=== PATIENT | female | born 1960 | race Caucasian/White ===

== ENCOUNTER → 2018-07-29 | Outpatient (CLI) | payer BC ==
[2018-07-29 11:14] LABS: Basophils # (A) 0.1 k/uL (0-0.2); Basophils % (A) 1 %; Eosinophils % (A) 1 %; HCT 37.4 % (34.0-46.0); HGB 11.9 gm/dL (11.4-16.0); Hypochromasia Moderate; Lymphocytes # (A) 1.7 k/uL (1.0-4.8); Lymphocytes % (A) 23 %; MCH 27.3 pg (25.0-35.0); MCHC 31.9 g/dL (31.0-37.0); MCV 85.6 fL (80.0-100.0); Mean Platelet Volume 7.3; Monocytes # (A) 0.3 k/uL (0-1.0); Monocytes % (A) 4 %; Neutrophils # (A) 5.4 k/uL (1.3-7.7); Neutrophils % (A) 70 %; Platelet Count 268 k/uL (150-450); RBC 4.37 m/uL (3.80-5.40); RDW 14.7 % (11.5-15.5); WBC 7.6 k/uL (3.8-10.6)
== END | disposition home or self-care (01) ==
LOC: LABPAT 10:00
PROVIDERS: ATTEND Obstetrics & Gynecology
DX: Z01.812 Encounter for preprocedural laboratory examination (principal); Z01.818 Encounter for other preprocedural examination; I10 Essential (primary) hypertension; C56.9 Malignant neoplasm of unspecified ovary
CPT/HCPCS: 85025; 93005

== ENCOUNTER → 2018-07-30 | Outpatient (CLI) | payer BC ==
--- NOTE | 2018-08-04 09:51 | MM ---
Reason for exam: screening (asymptomatic). History: Patient is postmenopausal. Physical Findings: A clinical breast exam by your physician is recommended on an annual basis and results should be correlated with mammographic findings. MG 3D Screening Mammo W/Cad Bilateral CC and MLO view(s) were taken. XCCL view(s) were taken of the left breast. There are scattered fibroglandular densities. Benign appearing bilateral calcifications. No suspicious abnormality. Left intrammary lymph node. ASSESSMENT: Benign, BI-RAD 2 RECOMMENDATION: Routine screening mammogram of both breasts in 1 year.
== END | disposition home or self-care (01) ==
LOC: RADMAMWWP 13:32
PROVIDERS: ATTEND Obstetrics & Gynecology
DX: Z12.31 Encounter for screening mammogram for malignant neoplasm of breast (principal); Z80.3 Family history of malignant neoplasm of breast
CPT/HCPCS: 77063; 77067

== ENCOUNTER 2018-08-05 05:53 | Day surgery (SDC) | payer BC ==
[2018-07-31 09:07] VITALS: BMI 43.0
[~2018-08-05 05:53] MED LIST: DEXAMETHASONE SOD PHOSPHATE 10 MG/ML 1 ML VIAL IV ONE; HYDROmorphone 0.5 MG/0.5 ML SYRINGE IVP PRN; LACTATED RINGERS 1,000 ML IV SCH; LIDOCAINE 1% 20 ML VIAL (10MG/ML) FOR IV START INTRADERMA PRN; ONDANSETRON 4 MG/2 ML VIAL IVP ONE; SCOPOLAMINE 1.5MG/72HR PATCH TRANSDERM ONE; ceFAZolin 3 GM in SODIUM CHLORIDE 0.9% 100 ML IVPB ONE
[2018-08-05] MEDS ORDERED: MIDAZOLAM 2 MG/2 ML VIAL ONE (07:17)
[2018-08-05] MEDS ORDERED: KETOROLAC 30 MG/ML 1 ML VIAL ONE (07:17)
[2018-08-05] MEDS ORDERED: fentaNYL (PF) 50 MCG/ML 2 ML AMP ONE (07:17)
[2018-08-05] MEDS ORDERED: LIDOCAINE 1% INJ 10MG/ML (20 ML MDV) ONE (07:17)
[2018-08-05] MEDS ORDERED: PROPOFOL 10 MG/ML 20 ML VIAL IV ONE (07:17)
[2018-08-05 08:11] VITALS: TEMP 97
--- NOTE | 2018-08-05 08:29 | P.OP ---
Date of Procedure: 08/05/18 Preoperative Diagnosis: Postmenopausal bleeding. Endometrial biopsy revealing FIGO grade 1 endometrial adenocarcinoma in a background of hyperplastic tissue. Postoperative Diagnosis: Grade 3 rectocele. Grade 2 uterine prolapse. Procedure(s) Performed: Fractional dilatation and curettage of the uterine cavity, hysteroscopy. Anesthesia: CARLYLEA Surgeon: Eri Hebert Estimated Blood Loss (ml): 25 IV fluids (ml): 300 Urine output (ml): 150 Pathology: other (Endocervical curettings, endometrial curettings) Condition: stable Disposition: PACU Operative Findings: Abundant intrauterine tissue. No obvious polyps or tumors. Description of Procedure: Patient is brought to the operating suite where a general anesthetic is administered. She's placed in the dorsal lithotomy position. The appropriate timeout is performed to assure proper patient and procedural identification. The cervix, vagina, perineal bodies are all prepped and draped in usual sterile fashion. Bladder is drained for approximately 150 mL of clear yellow urine. Weighted speculum was placed into the vagina. A grade 3 rectocele is noted. The anterior lip of the cervix is grasped with a double-tooth tenaculum. A Kevorkian curette is used and endocervical curettings are obtained. Uterus then sounds to a depth of 10 cm. There is a grade 2 uterine prolapse noted under anesthesia. The cervix is gently and systematically dilated using Hanks dilators. The hysteroscope was introduced and fluid is infused into the cavity. The cavity is distended and inspected. There is an abundant amount of tissue noted, however no obvious tumors polyps or fibroids. The hysteroscope was removed. A medium sharp curette is used and the cavity is thoroughly curetted for a large amount of tissue. Polyp forceps is introduced and no additional tissue is procured. Hysteroscope was once again placed and the cavity appears to be completely curettage. Double-tooth tenaculum is removed from the anterior lip of the cervix. Cervix is clean and dry. All sponge needle and enhancement counts are correct. Total estimated blood loss 25 mL's. Patient is brought back to the recovery room in very good condition with a pulse of 62, blood pressure 128/62. Toradol is given prior to leaving the operative suite. She will follow-up with me in the office in 1 week.
[2018-08-05 09:08] VITALS: RESP 16
[2018-08-05 09:35] VITALS: BP 129/71; PULSE 71
== END 2018-08-05 09:53 | disposition home or self-care (01) ==
LOC: OR 05:53
PROVIDERS: ATTEND Obstetrics & Gynecology
DX: C54.1 Malignant neoplasm of endometrium (principal); N81.2 Incomplete uterovaginal prolapse; I10 Essential (primary) hypertension; E11.9 Type 2 diabetes mellitus without complications; F40.240 Claustrophobia; E66.9 Obesity, unspecified; Z68.41 Body mass index [BMI] 40.0-44.9, adult; Z79.899 Other long term (current) drug therapy; Z97.2 Presence of dental prosthetic device (complete) (partial); Z98.51 Tubal ligation status
CPT/HCPCS: 58558; 88305; J2250; J1100; J2405; J2001; J3010; J1885; J2704

== ENCOUNTER → 2018-08-17 | Outpatient (CLI) | payer BC ==
[2018-08-17 09:52] LABS: Basophils # (A) 0.1 k/uL (0-0.2); Basophils % (A) 1 %; Eosinophils # (A) 0.1 k/uL (0-0.7); Eosinophils % (A) 2 %; HCT 37.9 % (34.0-46.0); HGB 11.7 gm/dL (11.4-16.0); Hypochromasia Slight; Lymphocytes # (A) 2.5 k/uL (1.0-4.8); Lymphocytes % (A) 37 %; MCHC 30.8 g/dL (31.0-37.0); MCV 84.5 fL (80.0-100.0); Mean Platelet Volume 6.8; Monocytes # (A) 0.3 k/uL (0-1.0); Monocytes % (A) 5 %; Neutrophils # (A) 3.6 k/uL (1.3-7.7); Neutrophils % (A) 54 %; Platelet Count 237 k/uL (150-450); RBC 4.48 m/uL (3.80-5.40); RDW 15.1 % (11.5-15.5); WBC 6.7 k/uL (3.8-10.6)
[2018-08-17 10:02] LABS: African American GFR (CKD) >90 (>60 ml/min/1.73 sqM); Anion Gap 9 mmol/L; Blood Urea Nitrogen 14 mg/dL (7-17); Carbon Dioxide 28 mmol/L (22-30); Chloride 104 mmol/L (98-107); Glucose 106 mg/dL (74-99); Potassium 4.1 mmol/L (3.5-5.1); Sodium 141 mmol/L (137-145)
== END | disposition home or self-care (01) ==
LOC: LABPAT 08:38
PROVIDERS: ATTEND Obstetrics & Gynecology
DX: Z01.812 Encounter for preprocedural laboratory examination (principal); C55 Malignant neoplasm of uterus, part unspecified
CPT/HCPCS: 36415; 80051; 82565; 82947; 84520; 85025; 87086

== ENCOUNTER 2018-08-24 06:00 | Day surgery (SDC) | payer BC ==
[2018-08-18 14:07] VITALS: BMI 42.7
[2018-08-24] MEDS ORDERED: LACTATED RINGERS 1,000 ML IV ONE ×2 (06:32→08:33)
[2018-08-24] MEDS ORDERED: BACITRACIN 500 UNIT/GM OINT 28.4 GM TUBE TOPICAL ONE (07:17)
[2018-08-24] MEDS ORDERED: VASOPRESSIN 20 UNIT/ML 1 ML VIAL IM ONE ×2 (07:17)
[2018-08-24] MEDS ORDERED: fentaNYL (PF) 50 MCG/ML 2 ML AMP ONE (07:24)
[2018-08-24] MEDS ORDERED: PROPOFOL 10 MG/ML 20 ML VIAL IV ONE (07:24)
[2018-08-24] MEDS ORDERED: MORPHINE SULFATE (PF) 0.3 MG/0.3 ML SYR ONE (07:24)
[2018-08-24] MEDS ORDERED: MIDAZOLAM 2 MG/2 ML VIAL ONE (07:24)
[2018-08-24] MEDS ORDERED: diphenhydrAMINE 50 MG/ML 1 ML VIAL IVP PRN (08:50)
[2018-08-24] MEDS ORDERED: METOCLOPRAMIDE 5 MG/ML 2 ML VIAL IVP PRN (08:50)
[2018-08-24] MEDS ORDERED: KETOROLAC 30 MG/ML 1 ML VIAL IVP PRN (08:50)
[2018-08-24] MEDS ORDERED: ONDANSETRON 4 MG/2 ML VIAL IVP PRN (08:50)
[2018-08-24] MEDS ORDERED: SIMETHICONE 80 MG CHEWABLE PO PRN (08:50)
[2018-08-24] MEDS ORDERED: IBUPROFEN 600 MG TAB PO PRN (08:50)
--- NOTE | 2018-08-24 08:50 | P.OP ---
Date of Procedure: 08/24/18 Preoperative Diagnosis: FIGO grade 1 adenoCA endometrium in a background of hyperplasia Postoperative Diagnosis: post operative pathology pending Procedure(s) Performed: vaginal hysterectomy Anesthesia: CARLYLEA Surgeon: Eri Hebert Manager [facility]: Paige [place] Estimated Blood Loss (ml): 50 IV fluids (ml): 1,000 Urine output (ml): 200 Pathology: other (cervix and uterus) Condition: stable Disposition: PACU Operative Findings: Grade 3 rectocele. Grade 2-3 cystocele. Ovaries exceptionally high in the surgical field, within normal limits to inspection. Description of Procedure: Patient is brought to the operating suite where spinal with Duramorph is administered. She's placed in the dorsal lithotomy position. The cervix, vagina, perineum and perirectal areas are all prepped and draped in usual sterile fashion. Antibiotics are given. The appropriate timeout was performed. Bladder is drained for approximately 200 mL of clear yellow urine. Multiparous cervix is grasped at 12:00 and brought into the surgical field. The cervix is injected circumferentially with a dilute Pitressin solution. A [place] blade scalpel is used to circumscribe the mucosa with a V positioning at 6:00. Sponge rolled finger is used to sweep the mucosa from the underlying fascial planes. All times the mucosa is swept well from the surgical field to avoid bladder and/or ureteral injury. Peritoneum is entered at 6:00 with a Metzenbaum scissor and tagged with 2-0 Vicryl suture held with a hemostat. The large billed speculum is now placed into the peritoneal cavity. Stiven clamps are used in the uterosacral cardinal ligaments are clamped, tied, and held laterally with a hemostat after the pedicle was cut. This is done bilaterally. Uterine vasculature is skeletonized, clamped cut and suture ligated. 2 additional pedicles are taken superior to the vessels. The bladder is swept well from the operative field. The uterus is "walked out" and the remaining pedicles are securely clamped with Stiven clamps. The cervix and uterus are removed and sent to pathology for evaluation. The pedicles are tied with 0 Vicryl suture, flashed, and retied for excellent hemostasis. A sponge stick is then used to visualize the ovaries which are exceptionally high bilateral sidewalls. The decision is made to leave them in situ secondary to their inaccessibility and normal morphology to inspection. The large billed speculum is then changed to the shallow speculum. The 2-0 Vicryl suture is brought around in a pursestring fashion to close the peritoneum. The uterosacral cardinal ligaments are brought across to incorporate the opposite ligament as well as mucosa. 3 additional [id number]-pl-oclnk sutures are used for final vaginal cuff closure. The vagina is clean and dry. The Jacobo catheter is placed in the urine is clear. Rectal exam reveals smooth mucosa with no evidence of stitch or puckering of the mucosa. The vagina is packed with one-inch iodophor gauze. All sponge needle and enhancement counts are correct at the end of the procedure. Total estimated blood loss 50 mL's. Patient is brought back to the recovery room with stable vital signs including pulse of 71, blood pressure 103/55.
[2018-08-24] MEDS ORDERED: NALOXONE 0.4 MG/ML 1 ML VIAL IV PRN (10:13)
[2018-08-24] MEDS ORDERED: HYDROmorphone 0.5 MG/0.5 ML SYRINGE IVP PRN (10:13)
--- NOTE | 2018-08-25 05:52 | P.PN ---
Progress Note - Text Progress Note Date: 08/25/18 Patient doing well. Ambulating without paresthesia or weakness. Denies headache. Pain controlled. Spinal site clean and dry A/P POD#1 s/p hysterectomy with spinal duramorph - doing well
--- NOTE | 2018-08-25 08:03 | P.DS ---
Providers Date of admission: 08/24/18 Expected date of discharge: 08/25/18 Attending physician: Eri Hebert Primary care physician: Tenisha Ragsdale [facility] Course: This is a 58-year-old white female who presented with a history of postm enopausal bleeding. Endometrial biopsy and D&C both revealed FIGO grade 1 endometrial adenocarcinoma in a background of hyperplasia with atypia. After thorough counseling patient elected to have surgery here with me with the vaginal approach. The risks and benefits have been reviewed in detail. Please see my admitting H&P for details. Yesterday the patient underwent vaginal hysterectomy under my care. The ovaries were exceptionally high in the pelvis, and therefore left in situ secondary to normal appearance and in accessibility vaginally. A grade 3 rectocele was encountered and noted. Surgery was otherwise unremarkable, please see my dictated operative note for details. This morning the patient is doing well. She is voiding, ambulating, passing flatus without difficulty. Vaginal packing is removed. She is tolerating regular diet. She has no complaint of pain. There is no vaginal bleeding. Vital signs are stable and she has remained afebrile. She is judged to be in very good condition for discharge home. Patient will follow-up with me in the office in 2 weeks. She is reminded no intercourse, tampons or douching. She will use [id number] Advil or Aleve as needed for pain. I've asked her to call me with any fevers shakes or chills, foul smelling or copious vaginal drainage, with any difficulties voiding or defecating, with any back pain, lower extremity issues, or indeed with any concerns. No heavy lifting. No car driving for 2 weeks. No vacuuming for 2 weeks.She will follow up with me in the office in 2 weeks at which time the final pathology report will be discussed and further plans delineated as needed. Patient Condition at Discharge: Good Plan - Discharge Summary Discharge Rx Participant: No New Discharge Prescriptions: No Action Losartan-Hctz 50-12.5 mg [Hyzaar 50-12.5] 1 each PO DAILY Discharge Medication List Losartan-Hctz 50-12.5 mg [Hyzaar 50-12.5] 1 each PO DAILY 07/31/18 [History] Follow up Appointment(s)/Referral(s): Eri Hebert MD [STAFF PHYSICIAN] - 2 Weeks Patient Instructions/Handouts: *Surgery [facility] - Scopalamine Patch Instructions Discharge Disposition: HOME SELF-CARE
[2018-08-25 10:40] VITALS: BP 101/58; PULSE 51; RESP 20; TEMP 97.8
== END 2018-08-25 10:53 | disposition home or self-care (01) ==
LOC: OR 06:00 → 6PED 08:44 → OR 08-25 10:53
PROVIDERS: ATTEND Obstetrics & Gynecology
DX: C54.1 Malignant neoplasm of endometrium (principal); C53.9 Malignant neoplasm of cervix uteri, unspecified; I10 Essential (primary) hypertension; Z79.899 Other long term (current) drug therapy
CPT/HCPCS: 94760; 88309; 58260; J2250; J1200; J1100; J0690; J2405; J2274; J3010; J1885; J2704; 86850; 86900; 86901

== ENCOUNTER 2018-08-28 17:55 | Emergency (ER) | payer BC ==
[2018-08-28 18:28] VITALS: TEMP 98.1
[2018-08-28] MEDS ORDERED: ONDANSETRON 4 MG/2 ML VIAL IVP STA (18:51)
[2018-08-28] MEDS ORDERED: SODIUM CHLORIDE 0.9% 1,000 ML IV STA (18:51)
--- NOTE | 2018-08-28 19:02 | ED ---
General Adult HPI - General Chief complaint: Nausea/Vomiting/Diarrhea Stated complaint: Post Op- nausea, dizziness Time Seen by Provider: 08/28/18 18:37 Source: patient Mode of arrival: ambulatory Limitations: no limitations - History of Present Illness Initial comments: Patient is 4-year-old female presents emergency department with nausea vomiting. Patient reports on 08/24 had undergone a vaginal hysterectomy by Dr. Hebert and was discharged the following day without complications. Patient reports she has developed nausea since her discharge that is not resolving. Patient denies vomiting or diarrhea. Patient states she is passing flatus and ready had a bowel movement. Patient reports taking a stool softener prescribed by the surgeon. Patient also reports feeling "foggy"in her head but denies blurry vision or headache. Patient reports the pain is absent at this moment. Patient reports increased urgency or frequency but denies dysuria. Patient reports not drinking enough fluids or eating food but increased urinary output. Patient d enies vaginal discharge, hematuria, melena or hematochezia. Patient denies fever, chest pain, chest tightness, shortness of breath, abdominal pain. Patient denies calf pain or use of exogenous estrogen. - Related Data Home Medications Medication Instructions Recorded Confirmed Losartan-Hctz 50-12.5 mg [Hyzaar 1 each PO DAILY 07/31/18 08/28/18 50-12.5] Ibuprofen [Motrin Ib] 200 mg PO Q6HR 08/28/18 08/28/18 Allergies Allergy/AdvReac Type Severity Reaction Status Date / Time No Known Allergies Allergy Verified 08/28/18 19:21 Review of Systems ROS Statement: Those systems with pertinent positive or pertinent negative responses have been documented in the HPI. ROS Other: All systems not noted in ROS Statement are negative. Past Medical History Past Medical History: Hyperlipidemia, Hypertension History of Any Multi-Drug Resistant Organisms: None Reported Past Surgical History: Hysterectomy, Tubal Ligation Additional Past Surgical History / Comment(s): oophrectomy Past Psychological History: No Psychological Hx Reported Smoking Status: Never smoker Past Alcohol Use History: None Reported Past Drug Use History: None Reported General Exam Limitations: no limitations General appearance: alert, in no apparent distress, obese Head exam: Present: atraumatic, normocephalic Eye exam: Present: normal appearance, PERRL, EOMI Pupils: Present: normal accommodation ENT exam: Present: normal exam, normal oropharynx, mucous membranes moist, TM's normal bilaterally, normal external ear exam Neck exam: Present: normal inspection, full ROM. Absent: lymphadenopathy Respiratory exam: Present: normal lung sounds bilaterally Cardiovascular Exam: Present: regular rate, normal rhythm, normal heart sounds GI/Abdominal exam: Present: soft, normal bowel sounds. Absent: tenderness, guarding, rebound, rigid Extremities exam: Present: normal inspection, full ROM, normal capillary refill, other (+2 dorsalis pedis and posterior tibialis bilaterally. +2 ulnar and radial pulses bilaterally.). Absent: tenderness, pedal edema, calf tenderness (Negative Homans bilaterally) Back exam: Present: normal inspection, full ROM. Absent: tenderness, CVA tenderness (R), CVA tenderness (L) Neurological exam: Present: alert, oriented X3 Psychiatric exam: Present: normal affect, normal mood Skin exam: Present: warm, intact, normal color Course Vital Signs 08/28/18 18:24 Temperature 98.1 F Pulse Rate 88 Respiratory 18 Rate Blood Pressure 158/84 O2 Sat by Pulse 95 Oximetry Medical Decision Making - Medical Decision Making Patient is a 58-year-old female presents emergency Department with nausea. UA is showing mild elevation of her blood cells but I suspect this is residual blood from the procedure. CBC and CMP are unremarkable. KUB showing mild left- sided atelectasis and is otherwise unremarkable. Patient was given fluids, Z ofran and Reglan. On reevaluation patient reports feeling better. I have low suspicion for a PE considering the patient's vitals are stable, no shortness of breath, negative Homans bilaterally, no hemoptysis, exogenous use of estrogen. Patient advised to follow-up with her primary care and the [facility] who performed her procedure. Patient will be discharged with Zofran. Strict return parameters were thoroughly discussed with patient who is understanding and agreeable. Case discussed with physician. - Lab Data Result diagrams: 08/28/18 19:18 08/28/18 19:18 Lab Results 08/28/18 08/28/18 08/28/18 Range/Units 19:18 19:18 19:52 WBC 10.2 (3.8-10.6) k/uL RBC 4.60 (3.80-5.40) m/uL Hgb 11.9 (11.4-16.0) gm/dL Hct 37.4 (34.0-46.0) % MCV 81.3 (80.0-100.0) fL MCH 25.8 (25.0-35.0) pg MCHC 31.7 (31.0-37.0) g/dL RDW 15.2 (11.5-15.5) % Plt Count 262 (150-450) k/uL Neutrophils % 72 % Lymphocytes % 21 % Monocytes % 5 % Eosinophils % 1 % Basophils % 1 % Neutrophils # 7.3 (1.3-7.7) k/uL Lymphocytes # 2.2 (1.0-4.8) k/uL Monocytes # 0.5 (0-1.0) k/uL Eosinophils # 0.1 (0-0.7) k/uL Basophils # 0.1 (0-0.2) k/uL Sodium 140 (137-145) mmol/L Potassium 4.2 (3.5-5.1) mmol/L Chloride 102 (98-107) mmol/L Carbon Dioxide 28 (22-30) mmol/L Anion Gap 10 mmol/L BUN 12 (7-17) mg/dL Creatinine 0.47 L (0.52-1.04) mg/dL Est GFR (CKD-EPI)AfAm >90 (>60 ml/min/1.73 sqM) Est GFR (CKD-EPI)NonAf >90 (>60 ml/min/1.73 sqM) Glucose 116 H (74-99) mg/dL Calcium 9.7 (8.4-10.2) mg/dL Total Bilirubin 0.3 (0.2-1.3) mg/dL AST 42 H (14-36) U/L ALT 18 (9-52) U/L Alkaline Phosphatase 86 (38-126) U/L Total Protein 7.4 (6.3-8.2) g/dL Albumin 4.1 (3.5-5.0) g/dL Lipase 137 (23-300) U/L Urine Color Yellow Urine Appearance Clear (Clear) Urine pH 7.0 (5.0-8.0) Ur Specific [place]ill 1.018 (1.001-1.035) Urine Protein Negative (Negative) Urine Glucose (UA) Negative (Negative) Urine Ketones Negative (Negative) Urine Blood Small H (Negative) Urine Nitrite Negative (Negative) Urine Bilirubin Negative (Negative) Urine Urobilinogen <2.0 (<2.0) mg/dL Ur Leukocyte Esterase Negative (Negative) Urine RBC 21 H (0-5) /hpf Urine WBC 2 (0-5) /hpf Ur Squamous Epith Cells <1 (0-4) /hpf Urine Mucus Rare H (None) /hpf Disposition Clinical Impression: Nausea Disposition: HOME SELF-CARE Condition: Stable Instructions (If sedation given, give patient instructions): Acute Nausea and Vomiting (ED) Additional Instructions: Please take prescribed medication as directed. Please follow up with primary care and the [facility] who performed the procedure. Please return to emergency department if symptoms worsen. Please drink adequate amount of fluids. Is patient prescribed a controlled substance at d/c from ED?: No Referrals: Tenisha Boyd MD [Primary Care Provider] - 1-2 days Time of Disposition: 22:01
[2018-08-28 19:33] LABS: Basophils # (A) 0.1 k/uL (0-0.2); Basophils % (A) 1 %; Eosinophils # (A) 0.1 k/uL (0-0.7); Eosinophils % (A) 1 %; HCT 37.4 % (34.0-46.0); HGB 11.9 gm/dL (11.4-16.0); Lymphocytes # (A) 2.2 k/uL (1.0-4.8); Lymphocytes % (A) 21 %; MCH 25.8 pg (25.0-35.0); MCHC 31.7 g/dL (31.0-37.0); MCV 81.3 fL (80.0-100.0); Mean Platelet Volume 7.1; Monocytes # (A) 0.5 k/uL (0-1.0); Monocytes % (A) 5 %; Neutrophils # (A) 7.3 k/uL (1.3-7.7); Neutrophils % (A) 72 %; Platelet Count 262 k/uL (150-450); RDW 15.2 % (11.5-15.5); WBC 10.2 k/uL (3.8-10.6)
[2018-08-28 19:42] LABS: ALT 18 U/L (9-52); AST 42 U/L (14-36); African American GFR (CKD) >90 (>60 ml/min/1.73 sqM); Albumin 4.1 g/dL (3.5-5.0); Alkaline Phosphatase 86 U/L (38-126); Anion Gap 10 mmol/L; Blood Urea Nitrogen 12 mg/dL (7-17); Calcium 9.7 mg/dL (8.4-10.2); Carbon Dioxide 28 mmol/L (22-30); Chloride 102 mmol/L (98-107); Glucose 116 mg/dL (74-99); Lipase 137 U/L (23-300); Potassium 4.2 mmol/L (3.5-5.1); Sodium 140 mmol/L (137-145); Total Bilirubin 0.3 mg/dL (0.2-1.3); Total Protein 7.4 g/dL (6.3-8.2)
[2018-08-28 20:14] LABS: Appearance,Urine Clear (Clear); Bilirubin,Urine Negative (Negative); Blood,Urine Small (Negative); Color,Urine Yellow; Glucose,Urine (UA) Negative (Negative); Ketones,Urine Negative (Negative); Leukocyte Esterase,Urine Negative (Negative); Mucus,Urine Rare /hpf; Nitrite,Urine Negative (Negative); Protein,Urine Negative (Negative); RBC,Urine 21 /hpf (0-5); Specific Gravity,Urine 1.018 (1.001-1.035); Squamous Epithelial Cell,Urine <1 /hpf (0-4); Urobilinogen,Urine <2.0 mg/dL (<2.0)
--- NOTE | 2018-08-28 20:20 | XR ---
EXAMINATION TYPE: XR KUB DATE OF EXAM: 08/28/2018 COMPARISON: NONE HISTORY: Hysterectomy. Pain. TECHNIQUE: 2 views upright FINDINGS: There is no sign of intestinal obstruction or pneumoperitoneum. Fecal pattern is normal. Th ere are no pathologic calcifications over the kidneys. There is mild subsegmental atelectasis at the left lung base. IMPRESSION: Minimal atelectasis left lung base.
[2018-08-28] MEDS ORDERED: METOCLOPRAMIDE 5 MG/ML 2 ML VIAL IVP STA (21:08)
[2018-08-28] MEDS ORDERED: ONDANSETRON 4 MG ODT STARTER PACK 2 TAB BTL PO STA (22:03)
[2018-08-28 22:35] VITALS: BP 155/97; PULSE 77; RESP 16
== END 2018-08-28 22:33 | disposition home or self-care (01) ==
LOC: EC 17:55
DX: R11.0 Nausea (principal); R42 Dizziness and giddiness; R35.0 Frequency of micturition; R39.15 Urgency of urination; I10 Essential (primary) hypertension; Z79.1 Long term (current) use of non-steroidal anti-inflammatories (NSAID); Z79.899 Other long term (current) drug therapy; Z90.710 Acquired absence of both cervix and uterus; Z98.51 Tubal ligation status
CPT/HCPCS: 99283; 96374; 96375; 96361; 36415; 80053; 83690; 85025; 81001; 74018; J2765; J2405; S0119

== ENCOUNTER → 2018-12-21 | Outpatient (CLI) | payer BC ==
--- NOTE | 2018-12-21 11:31 | CT ---
EXAMINATION TYPE: CT chest wo/w con DATE OF EXAM: 12/21/2018 COMPARISON: None HISTORY: History of uterine cancer. Per patient nodule found on Prior scan at [facility] CT DLP: 1639 mGycm Automated exposure control for dose reduction was used. CONTRAST: CT scan of the chest is performed without and with IV Contrast, patient injected with 100 mL of Isovu e 300. FINDINGS: LUNGS: Small pleural-based nodule measuring less than 3 mm left lower lobe image 46. Additional 3 mm pleural-based pulmonary nodule right upper lobe anterolaterally image 35. No additional nodules seen. No evidence for mass or pleural effusion. No infiltrate or volume loss. MEDIASTINUM: There are no greater than 1 cm hilar or mediastinal lymph nodes. No pericardial effusi on is seen. Thoracic aorta is of normal caliber. The heart is not enlarged. UPPER ABDOMEN: Small hiatal hernia demonstrated. OTHER: No additional significant abnormality is seen. IMPRESSION: 1. Nonspecific sub-3 mm pleural-based nodularity as discussed.
== END | disposition home or self-care (01) ==
LOC: RADCTMAIN 10:33
PROVIDERS: ATTEND Radiology Radiation Oncology
DX: C54.1 Malignant neoplasm of endometrium (principal); R91.8 Other nonspecific abnormal finding of lung field; Z90.710 Acquired absence of both cervix and uterus
CPT/HCPCS: 71270; Q9967

== ENCOUNTER → 2019-09-28 | Outpatient (CLI) | payer BC ==
--- NOTE | 2019-09-28 14:03 | MM ---
Reason for exam: screening (asymptomatic). Last mammogram was performed 1 year and 2 months ago. History: Patient is postmenopausal and has history of endometrial cancer at age 58. Physical Findings: A clinical breast exam by your physician is recommended on an annual basis and results should be correlated with mammographic findings. MG 3D Screening Mammo W/Cad Bilateral CC and MLO view(s) were taken. Prior study comparison: July 30, 2018, bilateral MG 3d screening mammo w/cad. There are scattered fibroglandular densities. There are benign appearing round linear calcifications bilaterally. There is chronic nodularity in the left axilla. There is no discrete abnormality. ASSESSMENT: Benign, BI-RAD 2 RECOMMENDATION: Routine screening mammogram of both breasts in 1 year.
== END | disposition home or self-care (01) ==
LOC: RADMAMWWP 07:27
PROVIDERS: ATTEND Family Medicine
DX: Z12.31 Encounter for screening mammogram for malignant neoplasm of breast (principal)
CPT/HCPCS: 77063; 77067

== ENCOUNTER → 2019-12-30 | Outpatient (CLI) | payer BC ==
--- NOTE | 2019-12-30 22:08 | CT ---
EXAMINATION TYPE: CT chest wo/w con DATE OF EXAM: 12/30/2019 COMPARISON: 12/21/2018 HISTORY: Solitary pulmonary CT DLP: 1288.90 mGycm, Automated exposure control for dose reduction was used. CONTRAST: Performed injected with 100 mL of Isovue 300. TECHNIQUE: Axial images were obtained at 5 mm thick sections. Reconstructed images are reviewed on [employer] computer in the coronal plane. FINDINGS: There is a subtle hypodensity within the posterior right thyroid lobe. This could be furthe r evaluated with ultrasound, series 3 image 3. There is a subtle area of increased thickening along the right middle lobe pleural margin. Series 4 i mage 30. This is nonspecific. Atelectasis and pleural thickening could be considered. Follow-up can b e performed. Some mild increased density is in the posterior lateral left lung base measuring 0.7 cm. Series 4 image 37. No enlarged mediastinal or hilar adenopathy is evident. The ascending aorta diameter at the level o f the main pulmonary artery is 3.7 cm. The main pulmonary artery diameter at the bifurcation is 3.[address] sections are obtained through the upper abdomen. Small cortical renal cysts at superior po le right kidney measuring 1.1 cm. IMPRESSIONS: 1. 2 small areas of pleural thickening which may be somewhat wider on the current exam. Short-term fo llow-up in 6 months is recommended.
== END | disposition home or self-care (01) ==
LOC: RADCTMAIN 09:28
PROVIDERS: ATTEND Radiology Radiation Oncology
DX: J92.9 Pleural plaque without asbestos (principal); C54.1 Malignant neoplasm of endometrium; Z90.710 Acquired absence of both cervix and uterus; Z92.3 Personal history of irradiation
CPT/HCPCS: 71270; Q9967

== ENCOUNTER → 2020-09-28 | Outpatient (CLI) | payer BC | END | disposition home or self-care (01) | LOC: RADMAMWWP 10:14 | PROVIDERS: ATTEND General Practice | DX: Z12.31 Encounter for screening mammogram for malignant neoplasm of breast (principal) | CPT/HCPCS: 77063; 77067 ==

== ENCOUNTER → 2020-12-14 | Outpatient (CLI) | payer BC ==
[2020-12-14 08:26] LABS: African American GFR (CKD) >90 (>60 ml/min/1.73 sqM); Blood Urea Nitrogen 16 mg/dL (7-17); Non-African American GFR(CKD) >90 (>60 ml/min/1.73 sqM)
--- NOTE | 2020-12-14 10:29 | CT ---
EXAMINATION TYPE: CT chest wo/w con DATE OF EXAM: 12/14/2020 COMPARISON: Chest CT December 30, 2019 and December 21, 2018 HISTORY: SPN with history of uterine cancer CT DLP: 1542 mGycm. Automated Exposure Control for Dose Reduction was Utilized. TECHNIQUE: CT scan of the thorax is performed following without and with IV Contrast, patient inject ed with 100 ml mL of Isovue 300. FINDINGS: LUNGS: Scattered small micronodules and tiny nodules for reference posterior aspects of pleural level right upper lobe axial image 12 and 14 show 3 mm nodules not statistically change from most recent C T. Largest nodule is roughly 5 x 4 mm in the periphery of the right midlung axial image 29 and in the periphery of the left lower lobe measuring 6 x 4 mm axial image 41 without significant interval rogers ge from most recent CT. No new or enlarging greater than 5 mm pulmonary nodules. They are too small t o accurately characterize for enhancement. No pleural effusion or pneumothorax. Stable mild linear sc arring right mid lung anteriorly. Stable mild anterior left basilar linear scarring. MEDIASTINUM: There are no greater than 1 cm hilar or mediastinal lymph nodes. No cardiomegaly or pe ricardial effusion is seen. OTHER: Some focal atrophy at inferior head/uncinate process of pancreas is partially imaged. Mild mul tilevel anterior spurring. IMPRESSION: Scattered tiny peripheral nodules redemonstrated. No new or enlarging nodules. Product of Metastatic disease felt unlikely.
== END | disposition home or self-care (01) ==
LOC: RADCTMAIN 07:37
PROVIDERS: ATTEND Radiology Radiation Oncology
DX: C54.1 Malignant neoplasm of endometrium (principal); R91.1 Solitary pulmonary nodule; Z92.3 Personal history of irradiation; Z90.710 Acquired absence of both cervix and uterus
CPT/HCPCS: 82565; 84520; 71270; 36415; Q9967

== ENCOUNTER → 2022-10-04 | Outpatient (CLI) | payer BC ==
--- NOTE | 2022-10-04 10:07 | MM ---
Reason for Exam: Screening (asymptomatic). Last screening mammogram was performed 12 month(s) ago. Patient History: Menarche at age 10. First Full-Term at age 23. Left ovary removed at age 58. Right ovary removed at age 58. Hysterectomy at age 58. Postmenopausal. Patient has history of breast feeding. Endometrial cancer, age 58. Niece had breast cancer, age 35. Risk Values: Kiana 5 year model risk: 1.8%. NCI Lifetime model risk: 7.2%. Prior Study Comparison: 09/28/2019 Bilateral Screening Mammogram, [facility]. 09/28/2020 Bilateral Screening Mammogram, [facility]. 10/01/2021 Bilateral MG 3D screening mammo w/cad, [facility]. Tissue Density: There are scattered fibroglandular densities. Findings: Analyzed By CAD. Unchanged low axillary tail lymph node on the left. Unchanged benign punctate and secretory calcifications bilaterally. There is no suspicious group of microcalcifications or new suspicious mass in either breast. Overall Assessment: Benign, BI-RAD 2 Management: Screening Mammogram of both breasts in 1 year. . Patient should continue monthly self-breast exams. A clinical breast exam by your physician is recommended on an annual basis. This exam should not preclude additional follow-up of suspicious palpable abnormalities. Note on Kiana scores and lifetime risk: 1. A Kiana score greater than 3% is considered moderate risk. If this is the case, consider specialist referral to assess eligibility for a risk reducing agent. 2. If overall lifetime risk for the development of breast cancer is 20% or higher, the patient may qualify for future screening with alternating mammogram and breast MRI. Electronically signed and approved by: Freddy Reed M.D. Radiologist
== END | disposition home or self-care (01) ==
LOC: RADMAMWWP 06:52
PROVIDERS: ATTEND Family Medicine
DX: Z12.31 Encounter for screening mammogram for malignant neoplasm of breast (principal); Z78.0 Asymptomatic menopausal state; Z80.3 Family history of malignant neoplasm of breast; Z85.42 Personal history of malignant neoplasm of other parts of uterus
CPT/HCPCS: 77063; 77067

== ENCOUNTER → 2023-10-06 | Outpatient (CLI) | payer MEDICARE, BC ==
--- NOTE | 2023-10-15 14:53 | MM ---
Reason for Exam: Screening (asymptomatic). Last screening mammogram was performed 12 month(s) ago. Patient History: Menarche at age 10. First Full-Term at age 23. Left ovary removed at age 58. Right ovary removed at age 58. Hysterectomy at age 58. Postmenopausal. Patient has history of breast feeding. Endometrial cancer, age 58. Niece had breast cancer, age 35. Risk Values: Kiana 5 year model risk: 1.8%. NCI Lifetime model risk: 6.9%. Prior Study Comparison: 09/28/2020 Bilateral Screening Mammogram, [facility]. 10/01/2021 Bilateral MG 3D screening mammo w/cad, [facility]. 10/04/2022 Bilateral MG 3D screening mammo w/cad, [facility]. Tissue Density: The breasts are almost entirely fatty. Findings: Analyzed By CAD. Right breast: There is no suspicious group of microcalcifications or new suspicious mass. Left breast: There is no suspicious group of microcalcifications or new suspicious mass. Overall Assessment: Negative, BI-RAD 1 Management: Screening Mammogram of both breasts in [address] [facility] will attempt to contact patient to return for supplemental views and ultrasound if indicated. Patient should continue monthly self-breast exams. A clinical breast exam by your physician is recommended on an annual basis. This exam should not preclude additional follow-up of suspicious palpable abnormalities. Note on Kiana scores and lifetime risk: 1. A Kiana score greater than 3% is considered moderate risk. If this is the case, consider specialist referral to assess eligibility for a risk reducing agent. 2. If overall lifetime risk for the development of breast cancer is 20% or higher, the patient may qualify for future screening with alternating mammogram and breast MRI. Electronically signed and approved by: Manuel Cuevas DO
== END | disposition home or self-care (01) ==
LOC: RADMAMWWP 10:10
PROVIDERS: ATTEND Family Medicine
DX: Z12.31 Encounter for screening mammogram for malignant neoplasm of breast
CPT/HCPCS: 77063; 77067